=== PATIENT | male | born 1950 | race Caucasian/White ===

== ENCOUNTER 2020-12-14 | Emergency (ER) | payer MEDICARE, BC ==
[~2020-12-14] VITALS: Ht 172.7 cm; Wt 56.7 kg
[2020-12-14] MEDS ORDERED: ALPR0.5T8 PO (00:33)
--- NOTE | 2020-12-14 00:45 | NUR ---
Pt provided urine sample, sent to lab.
--- NOTE | 2020-12-14 00:45 | NUR ---
Dr. Freeman at bedside for MSE.
[2020-12-14 00:56] LABS: *BILIRUBIN,URIN NEGATIVE (NEGATIVE); *BLOOD, URINE 1+ (NEGATIVE); *CLARITY,URINE CLEAR (CLEAR); *KETONES,URINE NEGATIVE (NEGATIVE); *UROBILINOGEN,URINE 0.2 E.U./dl (NORMAL); LEUKOCYTE ESTERASE ,URINE NEGATIVE (NEGATIVE); NITRITE, URINE NEGATIVE (NEGATIVE); PH,URINE 7.5 (5.0-8.0); UGLUCOSE NEGATIVE (NEGATIVE)
[2020-12-14 00:58] LABS: *COLOR,URINE STRAW (YELLOW)
[2020-12-14 01:03] LABS: BACTERIA,URINE NONE SEEN /HPF (NONE SEEN); RBC,URINE 0-3 /HPF (0-3); SQUAMOUS EPITHELIAL CELL,UR NONE SEEN /HPF (NONE SEEN); WBC,URINE 0-3 /HPF (0-3)
[2020-12-14 01:10] LABS: BASOPHILS % (AUTO) 0.6 % (0.0-2.0); EOSINOPHILS # (AUTO) 0.4 K/uL (0.0-0.7); EOSINOPHILS % (AUTO) 4.9 % (0.0-7.0); HEMATOCRIT 42.3 % (36.7-47.1); HEMOGLOBIN 14.2 g/dL (12.5-16.3); LYMPHOCYTES # (AUTO) 2.4 K/uL (20.0-40.0); LYMPHOCYTES % (AUTO) 31.7 % (20.5-51.5); MEAN CORPUSCULAR HEMOGLOBIN 32.2 uug (23.8-33.4); MEAN CORPUSCULAR HGB CONC 34 g/dL (32.5-36.3); MONOCYTES # (AUTO) 0.8 K/uL (2.0-10.0); NEUTROPHILS # (AUTO) 3.9 K/uL (1.8-8.9); NEUTROPHILS % (AUTO) 51.8 % (38.5-71.5); PLATELET COUNT (AUTO) 116 K/uL (152-348); RED BLOOD CELL COUNT(AUTO) 4.41 MIL/uL (4.06-5.63); WHITE BLOOD COUNT (AUTO) 7.5 K/uL (3.6-10.2)
[2020-12-14 01:14] LABS: CREATININE 1.1 mg/dL (0.6-1.3); POTASSIUM 4.5 mmol/L (3.5-5.1)
[2020-12-14 01:20] LABS: BILIRUBIN,DIRECT 0.3 mg/dL (0.0-0.2); BILIRUBIN,TOTAL 1.2 mg/dL (0.2-1.0); TOTAL PROTEIN, SERUM 7.1 g/dL (6.4-8.2)
[2020-12-14] MEDS ORDERED: SWABABLE VALVE TRANSFER SET EA MC ONE (01:44)
[2020-12-14] MEDS ORDERED: IOHEXOL 300MG/ML 100 ML INFUS..BTL ONE (01:44)
[2020-12-14] MEDS ORDERED: IV NORMAL SALINE 250 ML IV ONE (01:44)
--- NOTE | 2020-12-14 01:47 | NUR ---
Pt out of ER for CT.
--- NOTE | 2020-12-14 02:18 | NUR ---
PATIENT REFUSED CONTRAST STUDY WHEN ON CT GANTRY. [id number] CALLED ER AND APPROVED TO CONTINUE WITH NON CONTRAST ABDOMEN CT
--- NOTE | 2020-12-14 02:28 | NUR ---
Patient does not wish to proceed with medical care recommended by Dr. Freeman. Patient given information related to possible complications, up to and including , which could occur as a result of leaving the hospital at this time. Patient verbalizes understanding of risks involved due to leaving against medical advice. Patient has signed AMA form.
[2020-12-14 02:29] VITALS: BP 107/86
== END 2020-12-14 02:29 | disposition left against medical advice (07) ==
LOC: ER 00:03
DX: R10.9 Unspecified abdominal pain (principal); R94.31 Abnormal electrocardiogram [ECG] [EKG]; F41.9 Anxiety disorder, unspecified; Z79.899 Other long term (current) drug therapy
CPT/HCPCS: 36415; 83690; 85025; A4663; J7050; Q9967